=== PATIENT | female | born 1930 | race Caucasian/White ===

== ENCOUNTER 2019-07-28 21:57 | Emergency (ER) | payer OTHER ==
[~2019-07-28] VITALS: Ht 157.5 cm; Wt 59.1 kg
[2019-07-28 22:03] VITALS: Ht 157.5 cm; Wt 59.1 kg
[2019-07-28] MEDS ORDERED: THYROID PILL (22:04)
[2019-07-28 22:53] LABS: BASOPHILS 0.3 % (0-2); EOSINOPHILS 0.1 % (0-7); HEMATOCRIT 38.9 % (36.0-48.0); HEMOGLOBIN 13.4 g/dL (12-16); IMMATURE GRANULOCYTES 0.1 % (0-5); LYMPHOCYTES 14.6 % (15-50); MCH 32.4 pg (26.0-34.0); MCHC 34.4 g/dL (31.0-37.0); MCV 94.2 fL (80.0-100.0); MEAN PLATELET VOLUME 10.5 fL (7.4-10.4); MONOCYTES 7.2 % (2-11); NEUTROPHILS 77.7 % (40-80); PLATELET COUNT 233 10x3/uL (130-400); RBC 4.13 10x6/uL (4.00-5.40); RDW 14.4 % (11.5-14.5); WBC 7.5 10x3/uL (4.8-10.8)
[2019-07-28 23:04] LABS: CALCIUM 8.7 mg/dL (8.5-10.1); CARBON DIOXIDE 27.4 mmol/L (21.0-32.0); POTASSIUM - SERUM 3.4 mmol/L (3.5-5.1)
[2019-07-28 23:18] LABS: ALBUMIN 3.5 g/dL (3.4-5.0); BILIRUBIN - TOTAL 0.58 mg/dL (0.2-1.3); MAGNESIUM - SERUM 1.9 mg/dL (1.8-2.4); PROTEIN - SERUM 7.1 g/dL (6.4-8.2); THYROID STIMULATING HORMONE 9.98 uIU/mL (0.36-3.74)
[2019-07-28 23:37] LABS: APPEARANCE CLEAR (CLEAR); BILIRUBIN NEGATIVE (NEGATIVE); COLOR YELLOW (YELLOW); GLUCOSE NEGATIVE (NEGATIVE); KETONE MODERATE mg/dL (NEGATIVE); NITRITE NEGATIVE (NEGATIVE); PROTEIN NEGATIVE (NEGATIVE); SPECIFIC GRAVITY 1.015 (1.005-1.020); UROBILINOGEN NORMAL (NORMAL)
[2019-07-28 23:39] LABS: BACTERIA FEW /hpf (NEGATIVE); EPITHELIAL CELLS 0-5 /hpf (0-5); RED CELLS - URINE 0-5 /hpf (0-5)
[2019-07-28] MEDS ORDERED: MACROBID100 MG PO (23:51)
[2019-07-29 00:10] VITALS: BP 195/103
== END 2019-07-29 00:10 | disposition home or self-care (01) ==
LOC: D.ER 21:57
PROVIDERS: Emergency Medicine
DX: R41.0 Disorientation, unspecified (principal); E87.6 Hypokalemia; N39.0 Urinary tract infection, site not specified